=== PATIENT | male | born 1985 ===

== ENCOUNTER 2016-11-27 22:30 | Emergency (ER) | payer OTHER ==
--- NOTE | 2016-11-28 02:13 | ED CLINICAL REPORT ---
Clinical Report - Physicians/Mid Levels [facility] [address] [place] [address] 11/27/2016 22:30 [id number] Time Seen: 01:03. Arrived- By private vehicle. Historian- patient. HISTORY OF PRESENT ILLNESS Chief Complaint: Injury to the right hand. The injury happened today. The patient sustained a direct blow. (friend's house). ( part of a dresser landed on his R hand). Patient is experiencing severe pain. No other injury. REVIEW OF SYSTEMS No swelling, tingling, numbness, weakness or foreign body. PAST HISTORY PAST HISTORY Borderline DM HTN. Additional Surgeries: no known surgeries. The patient's dominant hand is the right. SOCIAL HISTORY Never smoker. ADDITIONAL NOTES The nursing notes have been reviewed. PHYSICAL EXAM Vital Signs: 11/28/2016 02:30 BP: 116/63. HR: 105. RR: 20. O2 saturation: 98%. Pain level now: 5/10. 11/28/2016 00:39 BP: 117/73. HR: 97. RR: 18. O2 saturation: 99%. Temp: 97.8 F. Pain level now: 10/10. Appearance: Alert. No acute distress. Extremities: Right hand: moderate tenderness localized to the proximal, dorsal and palmar aspect of the hand. Neurovascular intact distally. (MCP joint area 1to 5). No erythema, swelling, laceration, abrasion or ecchymosis. No deformity. No wrist injury. Hand and wrist exam otherwise negative. Extremities otherwise negative. Neuro, Vascular and Tendons: Vascular status intact. Sensation intact. Motor intact. LABS, X-RAYS, AND EKG X-Rays: Right hand negative. The X-rays were independently viewed by me. Rt Hand X-ray: (Neg / RR PROCEDURE: XR HAND 3 OR 4 VIEWS - RIGHT INDICATION: TRAUMA/INJURY TECHNIQUE: Three views of the right hand. COMPARISON: None. FINDINGS: Normal mineralization. No fractures. Normal osseous alignment. No suspicious soft-tissue calcification or radiodense foreign bodies. IMPRESSION: 1. Intact right hand. Dictated by: MD Marnie WILLIAMSON: MOY;11/28/16802 <Electronically signed by JORDAN CASILLAS MD in OV> 11/28/16802). PROGRESS AND PROCEDURES Course of Care: Minimal objective signs of injury. Made a bulky hand dressing (4x4 and adarsh loosely) for comfort. Acetaminophen given. Disposition: Discharged. Condition: stable. CLINICAL IMPRESSION Single contusion to the right hand. INSTRUCTIONS Apply ice. Elevate affected areas above chest level. (USE THE BULKY HAND DRESSING FOR 2 DAYS THEN DISCARD THE DRESSING. YOU DO NOT WANT TO GET STIFF FINGERS BY PROLONGED IMMOBILIZATION. IN 7 DAYS IF NOT BETTER SEE YOUR DR. IF YOU CANNOT SEE YOUR DR YOU MAY BE RECHECKED IN THE ED.). Follow-up: Follow up with your doctor in seven days. (Electronically signed by Toney Sy MD 11/28/2016 22:13)
--- NOTE | 2016-11-28 02:13 | ED CLINICAL REPORT ---
Clinical Report - Physicians/Mid Levels [facility] [address] [place] [address] 11/27/2016 22:30 [id number] Time Seen: 01:03. Arrived- By private vehicle. Historian- patient. HISTORY OF PRESENT ILLNESS Chief Complaint: Injury to the right hand. The injury happened today. The patient sustained a direct blow. (friend's house). ( part of a dresser landed on his R hand). Patient is experiencing severe pain. No other injury. REVIEW OF SYSTEMS No swelling, tingling, numbness, weakness or foreign body. PAST HISTORY PAST HISTORY Borderline DM HTN. Additional Surgeries: no known surgeries. The patient's dominant hand is the right. SOCIAL HISTORY Never smoker. ADDITIONAL NOTES The nursing notes have been reviewed. PHYSICAL EXAM Vital Signs: 11/28/2016 02:30 BP: 116/63. HR: 105. RR: 20. O2 saturation: 98%. Pain level now: 5/10. 11/28/2016 00:39 BP: 117/73. HR: 97. RR: 18. O2 saturation: 99%. Temp: 97.8 F. Pain level now: 10/10. Appearance: Alert. No acute distress. Extremities: Right hand: moderate tenderness localized to the proximal, dorsal and palmar aspect of the hand. Neurovascular intact distally. (MCP joint area 1to 5). No erythema, swelling, laceration, abrasion or ecchymosis. No deformity. No wrist injury. Hand and wrist exam otherwise negative. Extremities otherwise negative. Neuro, Vascular and Tendons: Vascular status intact. Sensation intact. Motor intact. LABS, X-RAYS, AND EKG X-Rays: Right hand negative. The X-rays were independently viewed by me. Rt Hand X-ray: (Neg / RR PROCEDURE: XR HAND 3 OR 4 VIEWS - RIGHT INDICATION: TRAUMA/INJURY TECHNIQUE: Three views of the right hand. COMPARISON: None. FINDINGS: Normal mineralization. No fractures. Normal osseous alignment. No suspicious soft-tissue calcification or radiodense foreign bodies. IMPRESSION: 1. Intact right hand. Dictated by: MD Marnie WILLIAMSON: MOY;11/28/16802 <Electronically signed by JORDAN CASILLAS MD in OV> 11/28/16802). PROGRESS AND PROCEDURES Course of Care: Minimal objective signs of injury. Made a bulky hand dressing (4x4 and adarsh loosely) for comfort. Acetaminophen given. Disposition: Discharged. Condition: stable. CLINICAL IMPRESSION Single contusion to the right hand. INSTRUCTIONS Apply ice. Elevate affected areas above chest level. (USE THE BULKY HAND DRESSING FOR 2 DAYS THEN DISCARD THE DRESSING. YOU DO NOT WANT TO GET STIFF FINGERS BY PROLONGED IMMOBILIZATION. IN 7 DAYS IF NOT BETTER SEE YOUR DR. IF YOU CANNOT SEE YOUR DR YOU MAY BE RECHECKED IN THE ED.). Follow-up: Follow up with your doctor in seven days. (Electronically signed by Toney Sy MD 11/28/2016 22:13)
--- NOTE | 2016-11-28 02:14 | ED NURSING NOTES ---
Clinical Report - Nurses [facility] [address] [place] [address] 11/27/2016 22:30 [id number] TRI[facility] Triage time 00:39. Acuity: LEVEL 4. Chief Complaint: INJURY TO RIGHT HAND. --00:42 AllisonB R.N. 00:39 11/28/16. BP: 117/73. HR: 97. RR: 18. O2 saturation: 99%. Temp: 97.8 F. Pain level now: 06/19. --00:42 Betina R.N. Weight: 122.4 kg. Height/Length: 67 inches. BMI: 42.3. --00:42 AllisonB R.N. Medications None. --00:41 AllisonB R.N. Allergies No Known Drug Allergy. --00:41 Betina R.N. History Arrived by private vehicle. Historian: patient. Accompanied by friend. This occurred today. Mechanism of injury: he sustained a crush injury. ( pt was helping a friend move and got his hand caught under a dresser). 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 PAST MEDICAL HX: Negative. Tetanus status: up-to-date. Immunizations: up-to-date. SOCIAL HX: Never smoker. Alcohol use. No drug use. No infectious disease exposure. FALL RISK ASSESSMENT: Fall risk assessment completed. No fall risk identified. NUTRITIONAL RISK ASSESSMENT: The nutritional risk assessment revealed no deficiencies. FUNCTIONAL ASSESSMENT: Functional assessment: no impairments noted. LEARNING NEEDS ASSESSMENT: The learning needs assessment revealed no barriers. SKIN INTEGRITY ASSESSMENT: Skin integrity risk assessment completed. No skin integrity risk identified. --00:42 Betina R.N. ADDITIONAL SURGERIES: no known surgeries. Interventions ID band on patient. To treatment room. --00:42 TonreillyB R.N. PHYSICAL ASSESSMENT Ambulatory to room. GENERAL / NEURO / PSYCH: Oriented X 4. Alert. Appears in pain. EXTREMITIES: Capillary refill is less than 2 seconds in the extremities. Extremity pulses are within normal limits. Right hand: tenderness. SKIN: Skin intact. Skin is warm and dry. --00:43 Sarah Moffett NURSING PROGRESS NOTES 02:24 11/28/2016 Acetaminophen (APAP) PO Tablets 1000 mg given. Allergies verified and confirmed 5 rights. --02:24 Anatoliy Jolley R.N. ( hand dressing applied to right hand by miguelina Beasley). --02:30 Anatoliy Jolley R.N. DISPOSITION / DISCHARGE Condition at departure: stable. Learning barriers present. Discharge instructions provided and reviewed with the patient. Reviewed warnings. Treatments reviewed. Reviewed referrals for followup. Patient verbalized understanding. Written instructions provided in Guyanese. --02:31 Anatoliy Jolley R.N. 02:30 11/28/16. BP: 116/63. HR: 105. RR: 20 (unlabored). O2 saturation: 98%. Pain level now: 5/10. --02:31 Anatoliy Jolley R.N. Departure time: 02:30. --02:31 Anatoliy Jolley R.N. Locked/Released at 11/28/2016 2:31 by Anatoliy Jolley R.N.
--- NOTE | 2016-11-28 02:14 | ED ORDER SUMMARY ---
..... Patient: LIZ DE OLIVEIRA OrderSheet [facility] VisitID: [id number] [place] [address] 31y, M Registration Date/Time: 11/27/2016 ORDER SHEET Weight: 122.4 kg Allergies: No Known Drug Allergy GENERAL ORDERS: Hand 3 or 4V Right Urgent (01:06 11/28/2016 Inessa CHUA) (Ack 1:10 ALawrence ER Tech1) (1:17 GUnger) - (BULKY HAND DRESSING. TALK TO ME AND I WILL EXPLAIN) (02:10 11/28/2016 Inessa CHUA) (Ack 2:21 DDavis R.N.) (2:30 DDavis R.N.) MEDICATION ORDERS: Acetaminophen PO 1,000 mg (NOW) (02:10 11/28/2016 Inessa CHUA) (2:24 DDavis R.N.) IV FLUIDS: ORDER SHEET NOTES: [Electronically signed by Anatoliy Jolley R.N. (02:11/28/2016)] [Electronically signed by Toney Sy MD (22:13 11/28/2016)] [Electronically locked/signed by Anatoliy Jolley R.N. (:11/28/2016)]
--- NOTE | 2016-11-28 02:14 | ED ORDER SUMMARY ---
..... Patient: LIZ DE OLIVEIRA OrderSheet [facility] VisitID: [id number] [place] [address] 31y, M Registration Date/Time: 11/27/2016 ORDER SHEET Weight: 122.4 kg Allergies: No Known Drug Allergy GENERAL ORDERS: Hand 3 or 4V Right Urgent (01:06 11/28/2016 Inessa CHUA) (Ack 1:10 ALawrence ER Tech1) (1:17 GUnger) - (BULKY HAND DRESSING. TALK TO ME AND I WILL EXPLAIN) (02:10 11/28/2016 Inessa CHUA) (Ack 2:21 DDavis R.N.) (2:30 DDavis R.N.) MEDICATION ORDERS: Acetaminophen PO 1,000 mg (NOW) (02:10 11/28/2016 Inessa CHUA) (2:24 DDavis R.N.) IV FLUIDS: ORDER SHEET NOTES: [Electronically signed by Anatoliy Jolley R.N. (02:11/28/2016)] [Electronically signed by Toney Sy MD (22:13 11/28/2016)] [Electronically locked/signed by Anatoliy Jolley R.N. (:11/28/2016)]
--- NOTE | 2016-11-28 02:14 | ED NURSING NOTES ---
Clinical Report - Nurses [facility] [address] [place] [address] 11/27/2016 22:30 [id number] TRIAGE Triage time 00:39. Acuity: LEVEL 4. Chief Complaint: INJURY TO RIGHT HAND. --00:42 AllisonB R.N. 00:39 11/28/16. BP: 117/73. HR: 97. RR: 18. O2 saturation: 99%. Temp: 97.8 F. Pain level now: 06/19. --00:42 Betina R.N. Weight: 122.4 kg. Height/Length: 67 inches. BMI: 42.3. --00:42 AllisonB R.N. Medications None. --00:41 AllisonB R.N. Allergies No Known Drug Allergy. --00:41 Betina R.N. History Arrived by private vehicle. Historian: patient. Accompanied by friend. This occurred today. Mechanism of injury: he sustained a crush injury. ( pt was helping a friend move and got his hand caught under a dresser). 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 PAST MEDICAL HX: Negative. Tetanus status: up-to-date. Immunizations: up-to-date. SOCIAL HX: Never smoker. Alcohol use. No drug use. No infectious disease exposure. FALL RISK ASSESSMENT: Fall risk assessment completed. No fall risk identified. NUTRITIONAL RISK ASSESSMENT: The nutritional risk assessment revealed no deficiencies. FUNCTIONAL ASSESSMENT: Functional assessment: no impairments noted. LEARNING NEEDS ASSESSMENT: The learning needs assessment revealed no barriers. SKIN INTEGRITY ASSESSMENT: Skin integrity risk assessment completed. No skin integrity risk identified. --00:42 Betina R.N. ADDITIONAL SURGERIES: no known surgeries. Interventions ID band on patient. To treatment room. --00:42 TonreillyB R.N. PHYSICAL ASSESSMENT Ambulatory to room. GENERAL / NEURO / PSYCH: Oriented X 4. Alert. Appears in pain. EXTREMITIES: Capillary refill is less than 2 seconds in the extremities. Extremity pulses are within normal limits. Right hand: tenderness. SKIN: Skin intact. Skin is warm and dry. --00:43 Sarah Moffett NURSING PROGRESS NOTES 02:24 11/28/2016 Acetaminophen (APAP) PO Tablets 1000 mg given. Allergies verified and confirmed 5 rights. --02:24 Anatoliy Jolley R.N. ( hand dressing applied to right hand by miguelina Beasley). --02:30 Anatoliy Jolley R.N. DISPOSITION / DISCHARGE Condition at departure: stable. Learning barriers present. Discharge instructions provided and reviewed with the patient. Reviewed warnings. Treatments reviewed. Reviewed referrals for followup. Patient verbalized understanding. Written instructions provided in Syrian. --02:31 Anatoliy Jolley R.N. 02:30 11/28/16. BP: 116/63. HR: 105. RR: 20 (unlabored). O2 saturation: 98%. Pain level now: 5/10. --02:31 Anatoliy Jolley R.N. Departure time: 02:30. --02:31 Anatoliy Jolley R.N. Locked/Released at 11/28/2016 2:31 by Anatoliy Jolley R.N.
--- NOTE | 2016-11-28 08:03 | DIAGNOSTIC IMAGING REPORT ---
PROCEDURE: XR HAND 3 OR 4 VIEWS - RIGHT INDICATION: TRAUMA/INJURY TECHNIQUE: Three views of the right hand. COMPARISON: None. FINDINGS: Normal mineralization. No fractures. Normal osseous alignment. No suspicious soft-tissue calcification or radiodense foreign bodies. IMPRESSION: 1. Intact right hand.
--- NOTE | 2016-11-28 22:13 | ED DISCHARGE INSTRUCTIONS ---
Patient: LIZ DE OLIVEIRA General Instructions [facility] VisitID: [id number] [place] [place] [address] 31y, M Registration Date/Time: 11/27/2016 Single contusion to the right hand. INSTRUCTIONS Apply ice. Elevate affected areas above chest level. (USE THE BULKY HAND DRESSING FOR 2 DAYS THEN DISCARD THE DRESSING. YOU DO NOT WANT TO GET STIFF FINGERS BY PROLONGED IMMOBILIZATION. IN 7 DAYS IF NOT BETTER SEE YOUR DR. IF YOU CANNOT SEE YOUR DR YOU MAY BE RECHECKED IN THE ED.). Follow-up: Follow up with your doctor in seven days. ADDITIONAL INFORMATION Contusion,Soft Tissue You have a CONTUSION, which is a bruise with swelling and some bleeding under the skin. There are no broken bones. This injury takes a few days to a few weeks to heal. Home Care: 1) Keep the injured part elevated to reduce pain and swelling. This is especially important during the first 48 hours. 2) Make an ice pack (ice cubes in a plastic bag, wrapped in a towel) and apply for 20 minutes every 1-2 hours the first day. Continue this 3-4 times a day until the pain and swelling goes away. 3) You may use acetaminophen (Tylenol) or ibuprofen (Motrin, Advil) to control pain, unless another pain medicine was prescribed. [ NOTE : If you have chronic liver or kidney disease or ever had a stomach ulcer or GI bleeding, talk with your doctor before using these medicines.] Follow Up with your doctor or this facility if you are not improving within the next THREE days. [NOTE: If X-rays were taken, they will be reviewed by a radiologist. You will be notified of any new findings that may affect your care.] Get Prompt Medical Attention if any of the following occur: -- Pain or swelling increases -- Injured arm or leg becomes cold, blue, numb or tingly -- Redness, warmth or drainage from the skin You have been given the following additional information: Contusion, Soft Tissue (Electronically signed by Toney Sy MD 11/28/2016 22:13)
--- NOTE | 2016-11-28 22:13 | ED DISCHARGE INSTRUCTIONS ---
Patient: LIZ DE OLIVEIRA General Instructions [facility] VisitID: [id number] [place] [place] [address] 31y, M Registration Date/Time: 11/27/2016 Single contusion to the right hand. INSTRUCTIONS Apply ice. Elevate affected areas above chest level. (USE THE BULKY HAND DRESSING FOR 2 DAYS THEN DISCARD THE DRESSING. YOU DO NOT WANT TO GET STIFF FINGERS BY PROLONGED IMMOBILIZATION. IN 7 DAYS IF NOT BETTER SEE YOUR DR. IF YOU CANNOT SEE YOUR DR YOU MAY BE RECHECKED IN THE ED.). Follow-up: Follow up with your doctor in seven days. ADDITIONAL INFORMATION Contusion,Soft Tissue You have a CONTUSION, which is a bruise with swelling and some bleeding under the skin. There are no broken bones. This injury takes a few days to a few weeks to heal. Home Care: 1) Keep the injured part elevated to reduce pain and swelling. This is especially important during the first 48 hours. 2) Make an ice pack (ice cubes in a plastic bag, wrapped in a towel) and apply for 20 minutes every 1-2 hours the first day. Continue this 3-4 times a day until the pain and swelling goes away. 3) You may use acetaminophen (Tylenol) or ibuprofen (Motrin, Advil) to control pain, unless another pain medicine was prescribed. [ NOTE : If you have chronic liver or kidney disease or ever had a stomach ulcer or GI bleeding, talk with your doctor before using these medicines.] Follow Up with your doctor or this facility if you are not improving within the next THREE days. [NOTE: If X-rays were taken, they will be reviewed by a radiologist. You will be notified of any new findings that may affect your care.] Get Prompt Medical Attention if any of the following occur: -- Pain or swelling increases -- Injured arm or leg becomes cold, blue, numb or tingly -- Redness, warmth or drainage from the skin You have been given the following additional information: Contusion, Soft Tissue (Electronically signed by Toney Sy MD 11/28/2016 22:13)
--- NOTE | 2016-11-28 22:13 | ED MAR SUMMARY ---
..... Medication Administration Record [facility] [address] [place] [address] Patient: LIZ DE OLIVEIRA Visit ID: [id number] 31y, M Weight: 122.4 kg Height/Length: 67 in BMI: 42.3 ALLERGIES: No Known Drug Allergy Given 02:24 11/28/2016 Anatoliy Jolley R.N. Medication Administered: ACETAMINOPHEN [PO] (APAP), Dose: 1000 mg Tablets PO. Medication Ordered: Acetaminophen PO 1,000 mg (NOW).
--- NOTE | 2016-11-28 22:13 | ED MED RECONCILIATION SUMMARY ---
Patient: LIZ DE OLIVEIRA Medication Reconciliation Report [facility] VisitID: [id number] [address] [place] [address] 31y, M Registration Date/Time: 11/27/2016 Weight: 122.4 kg Height/Length: 67 in. BMI: 42.3 ALLERGIES: No Known Drug Allergy The patient's Home Medications are listed below: NONE. The source(s) of the original Home Medication information: Not obtained. The following Medications were given to the patient in the Emergency Department: Acetaminophen [PO] PO 1000 mg, administered: 11/28/2016 2:24:00 AM The following Medications were prescribed to the patient: None.
--- NOTE | 2016-11-28 22:13 | ED MED RECONCILIATION SUMMARY ---
Patient: LIZ DE OLIVEIRA Medication Reconciliation Report [facility] VisitID: [id number] [address] [place] [address] 31y, M Registration Date/Time: 11/27/2016 Weight: 122.4 kg Height/Length: 67 in. BMI: 42.3 ALLERGIES: No Known Drug Allergy The patient's Home Medications are listed below: NONE. The source(s) of the original Home Medication information: Not obtained. The following Medications were given to the patient in the Emergency Department: Acetaminophen [PO] PO 1000 mg, administered: 11/28/2016 2:24:00 AM The following Medications were prescribed to the patient: None.
--- NOTE | 2016-11-28 22:13 | ED MAR SUMMARY ---
..... Medication Administration Record [facility] [address] [place] [address] Patient: LIZ DE OLIVEIRA Visit ID: [id number] 31y, M Weight: 122.4 kg Height/Length: 67 in BMI: 42.3 ALLERGIES: No Known Drug Allergy Given 02:24 11/28/2016 Anatoliy Jolley R.N. Medication Administered: ACETAMINOPHEN [PO] (APAP), Dose: 1000 mg Tablets PO. Medication Ordered: Acetaminophen PO 1,000 mg (NOW).
== END 2016-11-28 02:30 | disposition home or self-care (01) ==
LOC: ED SRH 22:30
DX: S60.221A Contusion of right hand, initial encounter (principal); W20.8XXA Other cause of strike by thrown, projected or falling object, initial encounter; Y92.009 Unspecified place in unspecified non-institutional (private) residence as the place of occurrence of the external cause; Y93.9 Activity, unspecified; Y99.9 Unspecified external cause status; I10 Essential (primary) hypertension